=== PATIENT | female | born 1945 | race Caucasian/White ===

== ENCOUNTER 2019-03-26 13:44 | Emergency (ER) | payer MEDICARE, OTHER ==
[2019-03-26 15:09] VITALS: BP 125/67
--- NOTE | 2019-03-26 16:18 | UC ---
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 C/O ONGOING SWELLING AND ITCHING. SHE NOTES A SPOT ON THE FINGER THAT SHE THINKS MAY BE A STINGER. SHE WANTS IT REMOVED. - History of Current Complaint Chief Complaint: UCBiteInjury Stated Complaint: BEE STING LEFT HAND Time Seen by Provider: 03/26/19 15:59 Hx Obtained From: Patient Timing: Constant Pain Intensity: 0 Associated Signs & Symptoms: Negative: Fever - Allergy/Home Medications Allergies/Adverse Reactions: Allergies Allergy/AdvReac Type Severity Reaction Status Date / Time No Known Allergies Allergy Verified 03/26/19 15:03 PMH/Surg Hx/FS Hx/Imm Hx Previously Healthy: Yes - Surgical History Surgical History: Yes Surgery Procedure, Year, and Place: Nephrolithiasis, D&Cs - Family History Known Family History: Positive: Non-Contributory - Social History Alcohol Use: Daily Substance Use Type: None Smoking Status (MU): Former Smoker Length of Time of Smoking/Using Tobacco: <1 PPD x 15 Years When Did the Patient Quit Smoking/Using Tobacco: ~1974 - Immunization History Most Recent Tetanus Shot: "I don't know." Review of Systems All Other Systems Reviewed And Are Negative: No Constitutional: Negative: Fever Skin: Positive: Other - L 4th finger swelling Respiratory: Negative: Shortness Of Breath, Cough Motor: Negative: Decreased ROM, Weakness Neurological: Negative: Weakness, Paresthesia, Numbness Physical Exam Triage Information Reviewed: Yes Appearance: Well-Appearing Vital Signs: Initial Vital Signs Temp 98.6 F 03/26/19 14:59 Pulse 70 03/26/19 14:59 Resp 16 03/26/19 14:59 BP 125/67 03/26/19 14:59 Pulse Ox 99 03/26/19 14:59 Vital Signs Reviewed: Yes Eyes: Positive: Conjunctiva Clear Respiratory: Positive: No respiratory distress Cardiovascular: Positive: RRR Musculoskeletal: Positive: ROM Intact - L hand Neurological: Positive: Alert Psychological: Positive: Age Appropriate Behavior Skin Exam: Normal, Other - L 4th dorsal finger and mcp joint with slight swelling and pink. there is a tiny brown spec under the skin over the proximal phalanx. the finger is not warm and there is no streaking. the hand has full s/v /m function. Course/Dx - Course Course Of Treatment: pt wants me to dig out the spec. I advised to leave the site alone. Dr Andrade in and advise pt of same, do not dig into the skin. Dr Andrade does not feel there is an infection. - Diagnoses Provider Diagnosis: Bee sting Discharge - Sign-Out/Discharge Documenting (check all that apply): Patient Departure All imaging exams completed and their final reports reviewed: No Studies - Discharge Plan Condition: Stable Disposition: HOME Prescriptions: methylPREDNISolone [Medrol Dosepak 4 MG*] 0 mg PO .SEE RE INSTRUCTION #1 tab Triamcinolone 0.1% CREAM(NF) [Kenalog 0.1% Cream (NF)] 1 applic TOPICAL BID 5 Days #1 applic Patient Education Materials: Insect Bite or Sting (ED) Referrals: Yariel Sloan DO [Primary Care Provider] - 3 Days - Billing Disposition and Condition Condition: STABLE Disposition: Home
== END 2019-03-26 16:28 | disposition home or self-care (01) ==
LOC: UCCORT 13:44
DX: T63.441A Toxic effect of venom of bees, accidental (unintentional), initial encounter (principal); Z87.891 Personal history of nicotine dependence
CPT/HCPCS: 99202; G0463